=== PATIENT | female | born 1950 | race Caucasian/White ===

== ENCOUNTER 2020-05-06 09:40 | Observation (INO) | payer MEDICARE ==
[~2020-05-06] VITALS: Ht 170.2 cm; Wt 77.1 kg
[2020-05-06] VITALS (8 sets, daily range): BP systolic 139–176; BP diastolic 75–97
[2020-05-06] MEDS ORDERED: SODIUM CHLORIDE 0.9% 1000ML 1,000 ML IV STA (09:43)
[2020-05-06] MEDS ORDERED: ONDANSETRON HCL INJ 2MG/ML 2ML 2 MG/ML VIAL IV NR (10:02)
--- NOTE | 2020-05-06 10:15 | NUR ---
CALLED LAB AND SPOKE WITH CHAZ FOR PHLEUBOTOMIST TO COME DRAW PT. ANSWER, "WE ONLY HAVE ONE PHLEUBOTOMIST AND SHE'S ON THE FLOOR. I'LL LET HER KNOW WHEN SHE COMES BACK."
--- NOTE | 2020-05-06 10:31 | NUR ---
Lab called for assistance with blood draw d/t difficult blood collection. Notified JANAE Chávez that patient is upset that this RN was unable to obtain PIV on first attempt. 2nd attempt piv inserted without difficulty, but did not obtain blood specimens d/t not wanting to lose piv.
--- NOTE | 2020-05-06 10:35 | NUR ---
Pt returned from CT scan.
--- NOTE | 2020-05-06 10:41 | NUR ---
Pt reported this RN in triage that she has not drank much water lately, she reports she has been drinking too much diet coke and wine with her friend.
[2020-05-06 10:57] LABS: AMPHETAMINES SCREEN,URINE NEGATIVE (NEGATIVE); BENZODIAZEPINES SCREEN,URINE NEGATIVE (NEGATIVE); PHENCYCLIDINE SCREEN,URINE NEGATIVE (NEGATIVE)
[2020-05-06 10:58] LABS: CLARITY,URINE CLEAR (CLEAR); COLOR,URINE YELLOW (YELLOW)
[2020-05-06 10:59] LABS: KETONES,URINE >=160 (NEGATIVE); LEUKOCYTE ESTERASE ,URINE TRACE (NEGATIVE); NITRITE,URINE NEGATIVE (NEGATIVE); PROTEIN,URINE DIPSTICK NEGATIVE (NEGATIVE); URINE UROBILINOGEN 0.2 mg/dL (0.2 - 1)
[2020-05-06 11:00] LABS: BILIRUBIN,URINE NEGATIVE (NEGATIVE)
--- NOTE | 2020-05-06 11:01 | NUR ---
LABS CURRENTLY BEING DRAWN.
[2020-05-06 11:05] LABS: BACTERIA,URINE FEW /HPF; EPITHELIAL CELLS,URINE FEW /LPF
[2020-05-06 11:12] LABS: BASOPHILS # (AUTO) 0.1 (0.0-0.1); BASOPHILS % 1.1 % (0.0-1.0); EOSINOPHILS # (AUTO) 0.2 (0.0-0.4); EOSINOPHILS % 1.8 % (0.0-6.0); HEMATOCRIT 38.9 % (34.2-44.1); HEMOGLOBIN 12.7 g/dL (12.0-16.0); LYMPHOCYTES # (AUTO) 1.5 (1.0-3.2); LYMPHOCYTES % 18.1 % (18.0-39.1); MEAN CORPUSCULAR HEMOGLOBIN 28.7 pg (28-32); MEAN CORPUSCULAR HGB CONC 32.6 g/dL (31-35); MONOCYTES # (AUTO) 0.6 (0.2-0.8); MONOCYTES % 7.4 % (4.4-11.3); NEUTROPHILS # (AUTO) 6.1 (2.1-6.9); NEUTROPHILS % 71.2 % (38.7-80.0); PLATELET COUNT 406 x10e3/uL (140-360); RED BLOOD COUNT 4.42 x10e6/uL (3.6-5.1); RED CELL DISTRIBUTION WIDTH 13.3 % (11.7-14.4)
[2020-05-06] MEDS ORDERED: ONDANSETRON HCL INJ 2MG/ML 2ML 2 MG/ML VIAL IV PRN ×2 (11:15→14:15)
--- NOTE | 2020-05-06 11:24 | Diagnostic Imaging Report ---
EXAMINATION: CHEST SINGLE (PORTABLE) INDICATION: ^HEADACHE, OFF-BALANCE ^[id number] ^1026 COMPARISON: None FINDINGS: AP view TUBES and LINES: None. . LUNGS/PLEURA: Lungs are well inflated. Linear left basilar atelectasis. There is no evidence of pneumonia or pulmonary edema.. There is no pleural effusion or pneumothorax. HEART AND MEDIASTINUM: The cardiomediastinal silhouette is unremarkable. BONES AND SOFT TISSUES: No acute osseous lesion. Soft tissues are unremarkable. UPPER ABDOMEN: No free air under the diaphragm. IMPRESSION: Linear left basilar atelectasis Signed by: Damon Walters MD on 05/06/2020 11:20 AM
[2020-05-06 11:33] LABS: ALANINE AMINOTRANSFERASE 24 IU/L (0-55); ALBUMIN 3.9 g/dL (3.5-5.0); ALBUMIN/GLOBULIN RATIO 1.4 (0.8-2.0); ALKALINE PHOSPHATASE 98 IU/L (40-150); ANION GAP 17.9 mmol/L (8-16); BLOOD UREA NITROGEN 10 mg/dL (7-26); BUN/CREATININE RATIO 12 (6-25); CALCIUM 8.8 mg/dL (8.4-10.2); CARBON DIOXIDE 21 mmol/L (22-29); CHLORIDE 97 mmol/L (98-107); CREATINE KINASE 93 IU/L (29-168); CREATININE, SERUM 0.84 mg/dL (0.57-1.11); EST GLOMERULAR FILTRATION RATE > 60 ML/MIN (60-); GLUCOSE 222 mg/dL (74-118); POTASSIUM 3.9 mmol/L (3.5-5.1); SODIUM 132 mmol/L (136-145)
[2020-05-06 11:42] LABS: INR 0.89; PROTHROMBIN TIME 12.5 seconds (11.9-14.5)
[2020-05-06 11:43] LABS: PARTIAL THROMBOPLASTIN TIME 30.4 seconds (23.8-35.5)
[2020-05-06] MEDS ORDERED: ASPIRIN 81 MG CHEW TAB PO ONE (11:45)
--- OUTSIDE RECORDS SUMMARY | 2020-05-06 11:49 | XMS REPORT | Continuity of Care Document ---
Author Author [facility] Organization [facility] Address [address] [place] [address] [place] [id number] Phone Unavailable Care Team Providers Care Director Of Automation Name Role Phone Shaunna CAN Attphys Unavailable Anders QUIROS Admphys Unavailable Problems This patient has no known problems. Allergies, Adverse Reactions, Alerts This patient has no known allergies or adverse reactions. Medications This patient has no known medications. Procedures This patient has no known procedures. Results Test Description Test Time Test Comments Results Result Comments Source CHEST SINGLE (PORTABLE) 2020-05-06 11:20:00 [place] [address] Patient Name: ARMANDO TEMPLETON MR #: [id number] : 1950 Age/Sex: 69/F Req #: [id number] Adm Physician: Ordered by: YANA CAN MD Report #: [id number] Location: ER Room/Bed: Procedure: DX/CHEST SINGLE (PORTABLE) Exam Date: 05/06/20 Exam Time: 1026 REPORT STATUS: Signed EXAMINATION: CHEST SINGLE (PORTABLE) INDICATION: HEADACHE, OFF-BALANCE [id number] COMPARISON: None FINDINGS: AP view TUBES and LINES: None. . LUNGS/PLEURA: Lungs are well inflated. Linear left basilar atelectasis. There is no evidence of pneumonia or pulmonary edema.. There is no pleural effusion or pneumothorax. HEART AND MEDIASTINUM: The cardiomediastinal silhouette is unremarkable. BONES AND SOFT TISSUES: No acute osseous lesion. Soft tissues are unremarkable. UPPER ABDOMEN: No free air under the diaphragm. IMPRESSION: Linear left basilar atelectasis Signed by: Damon Quick MD on 05/06/2020 11:20 AM Dictated By: DAMON QUICK MD 1120 Transcribed By: CARLI on 05/06/20 1120 COPY TO: YANA CAN MD
[2020-05-06] MEDS ORDERED: DEXTROSE 50% SYRINGE 50 ML IV PRN (12:00)
[2020-05-06] MEDS ORDERED: KETOROLAC TROMETHAMINE 30 MG/ML VIAL IV NR (12:00)
--- NOTE | 2020-05-06 12:00 | NUR ---
Pt currently receiving echo, than will transfer to floor.
--- NOTE | 2020-05-06 12:06 | Emergency Department Note ---
History of Present Illnes History of Present Illness Chief Complaint: Headache History of Present Illness This is a 69 year old female LAST NIGHT RT SIDE HEADACHE ONSET 10 PM. TOOK IBU 400MG WITHOUT RELIEF. TODAY AWOKE UP AND FELT DIZZY TO THE RIGHT SIDE. FELT NAUSEATED. NO VOMITING. NON SMOKER. NO NEURO DEFICITS NOTED IN TRIAGE. PT AAOX4. SMILING. HX TYPE ONE DM. Historian: Patient, Family Member Arrival Mode: Car Physician Aide Required: No Onset (how long ago): hour(s) Location: RIGHT SIDE HEAD Quality: PAIN Radiation: Reports non-radiation Severity: moderate Onset quality: gradual Timing of current episode: constant Progression: worsening (DEVELOPED ATAXIA DESCRIBED "MY BALANCE IS OFF AND I FEEL LIKE I'M GOING TO FALL TO THE RIGHT") Chronicity: new Context: Denies recent illness Relieving factors: none Exacerbating factors: none Associated symptoms: Reports denies other symptoms Treatments prior to arrival: none Past Medical/Family History Physician Review I have reviewed the patient's past medical and family history. Any updates have been documented here. Past Medical History Recent Fever: No Clinical Suspicion of Infectio: No New/Unexplained Change in Ment: No Past Medical History: Diabetes Other Medical History: TYPE ONE DIABETIC ENDOMETRIOSIS Other Surgery: RT EYE SX 3 LAPROSCOPIC SX Social History Smoking Cessation: Never Smoker Counseling Performed: No Alcohol Use: Occasional Any Illegal Drug Use: No TB Exposure/Symptoms: No Physically hurt or threatened: No Family History Family history of heart diseas: No Other Any Pre-Existing Lines (PICC,: No Review of Systems Review of Systems Constitutional: Reports no symptoms EENTM: Reports no symptoms Cardiovascular: Reports no symptoms Respiratory: Reports no symptoms Gastrointestinal: Reports no symptoms Genitourinary: Reports no symptoms Musculoskeletal: Reports no symptoms Integumentary: Reports no symptoms Neurological: Reports as per HPI Psychological: Reports no symptoms Endocrine: Reports no symptoms Hematological/Lymphatic: Reports no symptoms Physical Exam Related Data Allergies: Coded Allergies: No Known Allergies (Unverified , 05/06/20) Triage Vital Signs Vital Signs Date Time Temp Pulse Resp B/P (MAP) Pulse Ox O2 Delivery O2 Flow Rate FiO2 05/06/20 09:44 97.7 95 16 144/92 100 Room Air Vital signs reviewed: Yes Physical Exam CONSTITUTIONAL Constitutional: Present well-developed, Present well-nourished HENT HENT: Present normocephalic, Present atraumatic, Present oropharynx clear/moist, Present nose normal HENT L/R: Present left TM normal, Present right TM normal, Present left ext ear normal, Present right ext ear normal EYES Eyes: Reports PERRL, Reports conjunctivae normal, Reports EOM normal, Reports other (NO OCULAR BRUIT) NECK Neck: Present ROM normal; Absent carotid bruit PULMONARY Pulmonary: Present effort normal, Present breath sounds normal CARDIOVASCULAR Cardiovascular: Present regular rhythm, Present heart sounds normal, Present capillary refill normal, Present normal rate GASTROINTESTINAL Abdominal: Present soft, Present nontender, Present bowel sounds normal GENITOURINARY Genitourinary: Present exam deferred SKIN Skin: Present warm, Present dry MUSCULOSKELETAL Musculoskeletal: Present ROM normal NEUROLOGICAL Neurological: Present alert, Present oriented x 3, Present DTRs normal, Present no gross motor or sensory deficits, Present abnormal coordination (SLIGHT ATAXIA WITH AMBULATING); Absent cranial nerve deficit, Absent sensory deficit, Absent weakness PSYCHOLOGICAL Psychological: Present mood/affect normal, Present judgement normal Results Laboratory Result Diagram: 05/06/20 1104 05/06/20 1104 Laboratory Laboratory Tests Test 05/06/20 11:19 05/06/20 11:04 05/06/20 09:50 Prothrombin Time 12.5 seconds (11.9-14.5) Prothromb Time International Ratio 0.89 Activated Partial Thromboplast Time 30.4 seconds (23.8-35.5) White Blood Count 8.53 x10e3/uL (4.8-10.8) Red Blood Count 4.42 x10e6/uL (3.6-5.1) Hemoglobin 12.7 g/dL (12.0-16.0) Hematocrit 38.9 % (34.2-44.1) Mean Corpuscular Volume 88.0 fL (81-99) Mean Corpuscular Hemoglobin 28.7 pg (28-32) Mean Corpuscular Hemoglobin Concent 32.6 g/dL (31-35) Red Cell Distribution Width 13.3 % (11.7-14.4) Platelet Count 406 x10e3/uL (140-360) Neutrophils (%) (Auto) 71.2 % (38.7-80.0) Lymphocytes (%) (Auto) 18.1 % (18.0-39.1) Monocytes (%) (Auto) 7.4 % (4.4-11.3) Eosinophils (%) (Auto) 1.8 % (0.0-6.0) Basophils (%) (Auto) 1.1 % (0.0-1.0) Neutrophils # (Auto) 6.1 (2.1-6.9) Lymphocytes # (Auto) 1.5 (1.0-3.2) Monocytes # (Auto) 0.6 (0.2-0.8) Eosinophils # (Auto) 0.2 (0.0-0.4) Basophils # (Auto) 0.1 (0.0-0.1) Absolute Immature Granulocyte (auto 0.03 x10e3/uL (0-0.1) Sodium Level 132 mmol/L (136-145) Potassium Level 3.9 mmol/L (3.5-5.1) Chloride Level 97 mmol/L (98-107) Carbon Dioxide Level 21 mmol/L (22-29) Anion Gap 17.9 mmol/L (8-16) Blood Urea Nitrogen 10 mg/dL (7-26) Creatinine 0.84 mg/dL (0.57-1.11) Estimat Glomerular Filtration Rate > 60 ML/MIN (60-) BUN/Creatinine Ratio 12 (6-25) Glucose Level 222 mg/dL (74-118) Calcium Level 8.8 mg/dL (8.4-10.2) Total Bilirubin 0.4 mg/dL (0.2-1.2) Aspartate Amino Transf (AST/SGOT) 25 IU/L (5-34) Alanine Aminotransferase (ALT/SGPT) 24 IU/L (0-55) Alkaline Phosphatase 98 IU/L (40-150) Creatine Kinase 93 IU/L (29-168) Creatine Kinase MB 3.60 ng/mL (0-5.0) Troponin I 0.013 ng/mL (0-0.300) Total Protein 6.7 g/dL (6.5-8.1) Albumin 3.9 g/dL (3.5-5.0) Globulin 2.8 g/dL (2.3-3.5) Albumin/Globulin Ratio 1.4 (0.8-2.0) Urine Color Yellow (YELLOW) Urine Clarity Clear (CLEAR) Urine pH 7 (5 - 7) Urine Specific [place] 1.025 (1.010-1.025) Urine Protein Negative (NEGATIVE) Urine Glucose (UA) Negative (NEGATIVE) Urine Ketones >=160 (NEGATIVE) Urine Blood Trace (NEGATIVE) Urine Nitrite Negative (NEGATIVE) Urine Bilirubin Negative (NEGATIVE) Urine Urobilinogen 0.2 mg/dL (0.2 - 1) Urine Leukocyte Esterase Trace (NEGATIVE) Urine RBC 6-10 /HPF (0-5) Urine WBC 6-10 /HPF (0-5) Urine Epithelial Cells Few /LPF (NONE) Urine Bacteria Few /HPF (NONE) Urine Opiates Screen Negative (NEGATIVE) Urine Methadone Screen Negative (NEGATIVE) Urine Barbiturates Screen Negative (NEGATIVE) Urine Phencyclidine Screen Negative (NEGATIVE) Urine Amphetamines Screen Negative (NEGATIVE) Urine Methamphetamines Screen Negative (NEGATIVE) Urine Benzodiazepines Screen Negative (NEGATIVE) Urine Cocaine Screen Negative (NEGATIVE) Urine Cannabinoids Screen Negative (NEGATIVE) Lab results reviewed: Yes Imaging Imaging results reviewed: Yes Procedures 12 Lead ECG Interpretation ECG Interpretation : ECG: ECG 1 Physician Aide: Interpreted by ED physician Date: May 06, 2020 Time: 09:51 Rhythm: sinus rhythm Ectopy: infrequent PVC's Rate: normal (90) QRS axis: normal ST segments normal: Yes T waves normal: Yes Q waves: III, aVF Clinical Impression: abnormal ECG Additional Comments POOR RWP Assessment & Plan Medical Decision Making MDM HEADACHE AND ATAXIA - CT BRAIN, CBC, SED RATE, UA/CX, CXR, ECG, CARDIACS - EVAL CEREBRAL BLEED, CVA, TEMPORAL ARTERITIS, UTI, HYPERGLYCEMIA, RENAL INSUFF, DEHYDRATION Reassessment Reassessment SPOKE WITH DR QUIROS ON-CALL FOR ADMISSION Assessment & Plan Final Impression: (1) Headache (2) Ataxia Depart Disposition: ADMITTED Last Vital Signs Date Time Temp Pulse Resp B/P (MAP) Pulse Ox O2 Delivery O2 Flow Rate FiO2 05/06/20 11:03 88 18 166/103 98 Room Air 05/06/20 09:44 97.7 Medications in the ED Sodium Chloride 1,000 ml @ 0 mls/hr Q0M STAT IV Last administered on 05/06/20at 10:51; Admin Dose 999 MLS/HR; Start 05/06/20 at 09:43; Stop 05/06/20 at 09:58; Status DC Ondansetron HCl 4 mg ONCE IV Last administered on 05/06/20at 10:51; Admin Dose 4 MG; Start 05/06/20 at 10:02; Stop 06/05/20 at 11:59 Ondansetron HCl 4 mg Q4H PRN IV NAUSEA AND VOMITING; Start 05/06/20 at 11:15; Stop 06/05/20 at 11:14 Sodium Chloride 1,000 ml @ 100 mls/hr Q10H IV ; Start 05/06/20 at 11:15; Stop 06/05/20 at 11:14 Aspirin 81 mg NOW ONCE PO ; Start 05/06/20 at 11:45; Stop 05/06/20 at 11:46; Status DC Ceftriaxone Sodium 50 ml @ 100 mls/hr Q12H IV ; Start 05/06/20 at 11:45; Stop 05/13/20 at 11:44; Status YANA RESTREPO MD May 06, 2020 12:06
--- NOTE | 2020-05-06 12:20 | Diagnostic Imaging Report ---
Examination: CT head without contrast Clinical Indication: Right-sided headaches; off balance.. Technique: Transaxial noncontrast images from the skull base through the vertex were obtained. Sagittal and coronal reformatted images were done. Dose modulation, iterative reconstruction, and/or weight based adjustment of the mA/kV was utilized to reduce the radiation dose to as low as reasonably achievable. Comparison: None. Findings: Scalp: No abnormalities. Bones: Intact. No fractures. No blastic or lytic lesions. Brain sulci: Generalized volume loss for patient's age. Ventricles: No hydrocephalus. Extra-axial space: No abnormalities. Parenchyma: No masses, hemorrhage, or acute or chronic cortical based vascular insults. Suprasellar region: No abnormalities. Craniocervical junction: The foramen magnum is patent. No Chiari one malformation. Impression: No acute intracranial abnormality. Generalized volume loss for age. Signed by: Dr. Lani Blank M.D. on 05/06/2020 12:17 PM
[2020-05-06 12:49] LABS: ERYTHROCYTE SEDIMENTATION RATE 12 mm/hr (0-20)
[2020-05-06] MEDS: SODIUM CHLORIDE 0.9% 1000ML 1,000 ML IV SCH (13:01)
[2020-05-06] MEDS: CEFTRIAXONE SOD 1 GM/NS 50 ML 50 ML IV SCH ×2 (13:01→23:01)
--- NOTE | 2020-05-06 13:24 | NUR ---
Refused MRI. States she is claustrophobic and refuses sedation.
[2020-05-06] MEDS ORDERED: HYDRALAZINE HCL 20 MG/ML VIAL IV PRN (14:15)
[2020-05-06] MEDS ORDERED: DOCUSATE SODIUM 100 MG CAP PO PRN (14:15)
[2020-05-06] MEDS ORDERED: ACETAMINOPHEN/CODEINE 300MG - 30MG TAB PO PRN (14:15)
[2020-05-06] MEDS ORDERED: ACETAMINOPHEN 325 MG TAB PO PRN (14:15)
[2020-05-06] MEDS: LOSARTAN POTASSIUM 100 MG TAB PO SCH (14:48)
[2020-05-06] MEDS: INSULIN LISPRO 100 UNIT/1 ML 3ML VIAL SQ SCH ×2 (15:17→20:46)
[2020-05-06] MEDS ORDERED: MELATONIN 5 MG TABLET PO PRN (21:00)
[2020-05-07] VITALS: BP 133/67
--- NOTE | 2020-05-07 00:08 | History and Physical ---
ADDENDUM: IMPRESSION: 1. Type 2 diabetes-insulin sliding scale. Hemoglobin A1c. Accu-Cheks and long-acting Lantus was initiated. 2. The patient was started on IV Rocephin for possible sinusitis as well. MD SURINDER Arriaga/MODL /[id number]
[2020-05-07] MEDS: SODIUM CHLORIDE 0.9% 1000ML 1,000 ML IV SCH (01:46)
--- NOTE | 2020-05-07 02:03 | History and Physical ---
CHIEF COMPLAINT: Ataxia, loss of bowels. HISTORY OF PRESENT ILLNESS: A 69-year-old female, comes into the ED with complaints of underlying ataxia that began last night. The patient reports that she felt very nauseous, very dizzy, and had a headache, for which she took some medications and went to bed. She woke up in the middle of the night, started deviating toward the right and came into the ED for further evaluation and management. She denies any history of any CVAs in the past. No chest pain, palpitation, nausea, vomiting. No cough, congestion, or any fever. The patient is seen and evaluated at bedside on the medical floor. She is currently doing well with no other issues at this time. REVIEW OF SYSTEMS: Pertinent positive; loss of balance, ataxia, headache, and nausea. The rest of 14-point review of systems are reviewed with the patient and are negative. ALLERGIES: NO KNOWN DRUG ALLERGIES. HOME MEDICATIONS: None. PAST MEDICAL HISTORY: None. PAST SURGICAL HISTORY: None. FAMILY HISTORY: Hypertension and diabetes. SOCIAL HISTORY: No drugs. No alcohol. Does not smoke. Good social support. PHYSICAL EXAMINATION: VITAL SIGNS: Temperature is 98.7, respiratory rate is 20, blood pressure 121/75, pulse ox 100% on room air. GENERAL: Not in acute distress. Alert and oriented x3. Cooperative on examination. HEENT: Head is normocephalic, atraumatic. Eyes, pupils are equal, round, reactive to light bilaterally. NECK: Supple. Good range of motion. PULMONARY: Clear to auscultation bilaterally. No wheezing, rales, rhonchi. No crackles appreciated. CARDIOVASCULAR: Positive S1 and S2. No murmurs, rubs, or gallops appreciated. ABDOMEN: Soft, nondistended, and nontender to palpation. Bowel sounds present. MUSCULOSKELETAL: Strength is 5/5 throughout. No evidence of muscle deficits on examination. NEUROLOGICAL: She is alert, awake, and oriented x3. She is able to move all her extremities with no issues. SKIN: Intact warm to touch. Good cap refill. PSYCHIATRIC: Normal affect and mood. EXTREMITIES: No edema. Good range of motion throughout. LABORATORY FINDINGS: Show white count 8.5, hemoglobin 12, hematocrit is 39, and platelets of 406. Chemistry; sodium 132, potassium 3.9, chloride 97, bicarb 21, anion gap of 17, BUN is 10, creatinine is 0.84, glucose is 222, calcium 8.8, total bilirubin is 0.4, AST 25, ALT 24. Troponins were negative. Albumin was 3.9. Urinalysis negative. Urine drug screen negative. Alcohol level negative. Coronavirus pending. MICROBIOLOGY: Urine culture is pending. IMAGING STUDIES: CT brain was found to be negative for likely any acute findings. Chest x-ray found to be negative. IMPRESSION: 1. Ataxia with loss of balance. 2. Nausea. 3. Headache. PLAN: At this time, etiology got ataxia is in progress. CT brain negative. She did report some questionable sinusitis. I am not sure is this is an inner ear issue, though the patient denies any inner ear pain. MRI of the brain, carotid ultrasound, and 2D echo has been ordered including a Neurology consultation. The patient does not have any home medications. I will go ahead and get labs, lipid panel, TSH, and A1c. I will start her on aspirin. Hold anticoagulation until MRI of the brain is back and found to be negative. The patient will be transferred to the floor under the care of Dr. Ken Corrales, hospitalist. MD SURINDER Arriaga/MARLENE /[id number]
[2020-05-07 04:25] VITALS: BP 120/79
[2020-05-07 06:39] LABS: BASOPHILS # (AUTO) 0.1 (0.0-0.1); BASOPHILS % 1.3 % (0.0-1.0); EOSINOPHILS # (AUTO) 0.3 (0.0-0.4); EOSINOPHILS % 4.8 % (0.0-6.0); HEMATOCRIT 38.2 % (34.2-44.1); HEMOGLOBIN 12.6 g/dL (12.0-16.0); LYMPHOCYTES # (AUTO) 2.5 (1.0-3.2); LYMPHOCYTES % 36.3 % (18.0-39.1); MEAN CORPUSCULAR HEMOGLOBIN 30.1 pg (28-32); MEAN CORPUSCULAR VOLUME 91.4 fL (81-99); MONOCYTES # (AUTO) 0.7 (0.2-0.8); MONOCYTES % 10.7 % (4.4-11.3); NEUTROPHILS # (AUTO) 3.2 (2.1-6.9); NEUTROPHILS % 46.8 % (38.7-80.0); PLATELET COUNT 363 x10e3/uL (140-360); RED BLOOD COUNT 4.18 x10e6/uL (3.6-5.1); RED CELL DISTRIBUTION WIDTH 13.9 % (11.7-14.4)
[2020-05-07 06:52] LABS: ALANINE AMINOTRANSFERASE 20 IU/L (0-55); ALBUMIN 3.6 g/dL (3.5-5.0); ALBUMIN/GLOBULIN RATIO 1.5 (0.8-2.0); ALKALINE PHOSPHATASE 83 IU/L (40-150); ANION GAP 14.8 mmol/L (8-16); BLOOD UREA NITROGEN 8 mg/dL (7-26); BUN/CREATININE RATIO 11 (6-25); CALCIUM 8.4 mg/dL (8.4-10.2); CARBON DIOXIDE 21 mmol/L (22-29); CHLORIDE 107 mmol/L (98-107); CHOLESTEROL 193 MD/DL (0-199); CREATININE, SERUM 0.76 mg/dL (0.57-1.11); EST GLOMERULAR FILTRATION RATE > 60 ML/MIN (60-); GLUCOSE 105 mg/dL (74-118); HDL CHOLESTEROL 64 MG/DL (40-60); LDL CHOLESTEROL 116 MG/DL (60-130); POTASSIUM 3.8 mmol/L (3.5-5.1); SODIUM 139 mmol/L (136-145); TRIGLYCERIDES 67 MG/DL (0-149)
[2020-05-07 07:07] LABS: THYROID STIMULATING HORMONE 3.587 uIU/mL (0.350-4.940)
--- NOTE | 2020-05-07 07:07 | NUR ---
REPORT GIVEN TO DAY NURSE. PATIENT IS RESTING IN BED. BED IS IN LOWEST POSITION AND CALL LIGHT IS WITHIN REACH
[2020-05-07 07:16] LABS: CREATINE KINASE MB 3.4 ng/mL (0-5.0)
[2020-05-07] MEDS ORDERED: INSULIN GLARGINE 100 UNITS/ML VIAL SQ SCH (07:30)
[2020-05-07] MEDS: INSULIN LISPRO 100 UNIT/1 ML 3ML VIAL SQ SCH ×2 (07:30→11:30)
[2020-05-07 08:39] VITALS: BP 138/68
[2020-05-07 08:50] VITALS: BP 138/68
[2020-05-07] MEDS ORDERED: ASPIRIN 81 MG ENTERIC COATED PO SCH (09:00)
[2020-05-07] MEDS: LOSARTAN POTASSIUM 100 MG TAB PO SCH (09:05)
[2020-05-07] MEDS: CEFTRIAXONE SOD 1 GM/NS 50 ML 50 ML IV SCH (11:13)
[2020-05-07] MEDS ORDERED: ASPIRIN CHEW81 MG PO (12:19)
[2020-05-07] MEDS ORDERED: LIPITOR20 MG PO (12:21)
[2020-05-07 12:34] VITALS: BP 136/79
--- NOTE | 2020-05-07 12:45 | NUR ---
RECEIVED REPORT FROM DANIEL KENT. PATIENT IN STABLE CONDITION, NO S/S OF DISTRESS NOTED. RESPIRATIONS EVEN AND NON LABORED. TELEMETRY APPLIED. IV FLUIDS INFUSING, SITE ASYMPTOMATIC AND PATENT , TRANSPARENT DRESSING C/D/I. BED IN LOWEST POSITION AND LOCKED, SIDE RAILS X 2, NON SKID SOCKS APPLIED. CALL LIGHT WITHIN REACH
--- NOTE | 2020-05-07 13:35 | Consultation ---
DATE OF CONSULTATION: Neurology Consultation HISTORY OF PRESENT ILLNESS: The patient is a 69-year-old female with a history of adrenal dysfunction, presented after having retro-orbital headaches and sensory disturbance, maybe some neck stiffness, but no pain. The headache lasts all day, when she woke up it was better, then she was mildly ataxic, lasted for a day. She presented around that time due to the time of onset . No history of chest pain, palpitations, nausea, or vomiting. No cough today. She has no fever. No history of TB in the past. No history of hypertension or hyperlipidemia. No diabetes. HOME MEDICATIONS: She takes fludrocortisone. PAST MEDICAL HISTORY: adrenal dysfunction. SOCIAL HISTORY: No tobacco, alcohol, or drugs. PHYSICAL EXAMINATION: VITAL SIGNS: Temperature is 98.7, respiratory rate is about 16 and comfortable, blood pressure 121/75, and saturation 100% on room air. GENERAL: The patient is ambulatory, without any dysfunction or ataxia. She is awake and oriented x3, responsive and fluent. HEENT: Extraocular muscles intact. Face symmetric. Tongue is midline. No ptosis. No nuchal rigidity. CARDIOVASCULAR: Regular rate and rhythm. She is on telemetry. PULMONARY: Clear to auscultation. ABDOMEN: Soft, nontender. EXTREMITIES: Strength is 5/5, reflexes are symmetric and there is no ataxia. Toes are downgoing. She presents with mild vestibular dysfunction perhaps nausea and headache, which ultimately resolved at this time. Her CT is negative. is reassuring. Vital signs are stable. Her lab values showed nothing substantial. She remained mildly dehydrated on admission, not substantially so, I do not think this is a TIA. ASSESSMENT AND PLAN: In our recommendation, however, we are going to add aspirin 10 mg of atorvastatin is also reasonable, but not critical. I just think outpatient followup for this possible vestibular dysfunction, recurrent and headaches sound like there might be a sympathetic component, might be reasonable as well. Otherwise, no acute neurological changes and no acute neurological interventions at this time. MD MAGGIE DURHAM/CESARL /[id number]
--- NOTE | 2020-05-07 14:28 | NUR ---
PATIENT DISCHARGED HOME. PATIENT OFF THE UNIT @ 1404VIA WHEELCHAIR ACCOMPANIED BY PCT TO THE LOBBY. PATIENT IN STABLE CONDITION, NO S/S OF DISTRESS NOTED. NO PAIN VOICED. IV REMOVED WITH TIP INTACT. ALL PERSONAL ITEMS TAKEN WITH THE PATIENT. DISCHARGE TEACHING AND INSTRUCTION GIVEN TO THE PATIENT. PATIENT VERBALIZED UNDERSTANDING. DISCHARGE TEACHING AND PRESCRIPTION GIVEN TO THE PATIENT.
[2020-05-07] MEDS ORDERED: ATORVASTATIN 20 MG TAB PO SCH (21:00)
--- NOTE | 2020-05-07 23:22 | Discharge Summary ---
PRIMARY CARE PHYSICIAN: [facility]. She reports going to multiple doctors at [facility]. FINAL DISCHARGE DIAGNOSES: 1. Ataxia with loss of balance. 2. Right-sided headache. 3. Type 1 diabetes. 4. Hypothyroidism. CONSULTANTS: Dr. Padilla with Neurology. PROCEDURES: She underwent CT brain, which was negative for acute process. Carotid Doppler and echocardiogram with EF of 55% to 60%. She was unable to do an MRI due to claustrophobia. HISTORY: Per HPI. HOSPITAL COURSE: This is a 69-year-old female with past medical history of diabetes, hypothyroidism, presented to the ER with complaints of severe right-sided headache and gait imbalance. She denies any chest pain, palpitation, nausea, vomiting, or vision changes. CT of the brain was negative for acute process. Carotid Doppler and echo were insignificant with echo with EF of 55% to 60%. She was unable to complete the MRI of the brain due to claustrophobia, she was suggested to take Ativan prior to the procedure, but refused to undergo the scan again. Neurology was consulted and recommends outpatient followup for vestibular dysfunction and headache. No acute neurological intervention is recommended at this time. Today, she was up with physical therapy. No further gait imbalance, we will discharge home to follow up with her PCP and Neurology as recommended. PHYSICAL EXAMINATION: VITAL SIGNS: Temperature 98.2, pulse is 88, respirations 18, blood pressure 136/79, pulse ox is 100% on room air. GENERAL: No acute distress. HEENT: Normocephalic, atraumatic. NECK: Supple. LUNGS: Clear to auscultation. CARDIOVASCULAR: Regular rate and rhythm. ABDOMEN: Soft and nontender. MUSCULOSKELETAL: Moves all extremities. No focal weakness. NEUROLOGIC: Alert, awake, and oriented x3. SKIN: Dry. PSYCH: Calm. CONDITION AT DISCHARGE: Improved and stable. DISCHARGE MEDICATIONS: The patient is advised to take 81 mg of aspirin [id number] daily and given prescription for Lipitor 20 mg at bedtime in addition to her home medications. FOLLOWUP: Follow up with PCP, Neurology, and reel cutter in 1 to 2 weeks. TIME SPENT: Total discharge time is 31 minutes. Dictated by JOSH Fontanez Juan Corrales MD MY/MODL /[id number] cc: Her[facility]erto [facility]
== END 2020-05-07 14:04 | disposition home or self-care (01) ==
LOC: ER 09:43 → ERHOLD 11:46 → MED/SURG3 12:39
PROVIDERS: ADMIT Internal Medicine; ATTEND Internal Medicine
DX: R51 Headache (principal); R27.0 Ataxia, unspecified; E10.9 Type 1 diabetes mellitus without complications; Z79.4 Long term (current) use of insulin; Z83.3 Family history of diabetes mellitus; Z82.49 Family history of ischemic heart disease and other diseases of the circulatory system; E03.9 Hypothyroidism, unspecified
CPT/HCPCS: 36415 ×2; 70450; 71045; 80053 ×2; 80061; 80307; 80320; 81001; 82550 ×2; 82553 ×2; 82948 ×2; 83036; 84443; 84484 ×2; 85025 ×2; 85610; 85651; 85730; 87086; 93005; 93306; 93880; 96372; 97116; 97161; 99284; G0378 ×2; J0696 ×2; J2405; J7030 ×2; U0002